=== PATIENT | male | born 1990 | race Caucasian/White ===

== ENCOUNTER 2019-07-28 15:32 | Outpatient (CLI) | payer OTHER, SELFPAY ==
--- NOTE | 2019-07-28 15:47 | XR_ITS ---
WS: [id number] CHEST 2 VIEWS HISTORY: REGULATED PROGRAM MONITORING COMPARISON: None available. Lungs: Clear with no abnormality. No pleural effusion or pneumothorax. Cardiac size: Normal. Mediastinum/Aorta: Normal mediastinum. Bones: Normal. NOTE: Report was unsigned for reason: Ordering provider was edited. Original Signature date and time was: 07/28/19 1557 MTD XR/XR chest 2V* [id number] IMPRESSION: Normal chest.
== END 2019-07-28 15:33 | disposition home or self-care (01) ==
PROVIDERS: Family Provider Nurse Practitioner Family; Visit Provider Preventive Medicine Occupational Medicine
DX: Z13.6 Encounter for screening for cardiovascular disorders (principal)
CPT/HCPCS: 71046

== ENCOUNTER → 2020-06-25 10:21 | Outpatient (BNVA) | payer OTHER, SELFPAY | PROVIDERS: Family Provider Nurse Practitioner Family; Visit Provider Nurse Practitioner Family | DX: Z20.828 Contact with and (suspected) exposure to other viral communicable diseases (principal) | CPT/HCPCS: 87635 ==

== ENCOUNTER 2020-10-31 13:53 | Outpatient (CLI) | payer OTHER, SELFPAY ==
--- NOTE | 2020-10-31 14:22 | XR_ITS ---
WS: [id number] CHEST 2 VIEWS HISTORY: REGULATED PROGRAM MONITORING COMPARISON: 07/28/2019. Lungs: Clear with no abnormality. No pleural effusion or pneumothorax. Cardiac size: Normal. Mediastinum/Aorta: Normal mediastinum. Bones: Normal. XR/XR chest 2V* [id number] IMPRESSION: Normal chest.
== END 2020-10-31 13:54 | disposition home or self-care (01) ==
PROVIDERS: Visit Provider Preventive Medicine Occupational Medicine
DX: Z13.6 Encounter for screening for cardiovascular disorders (principal)
CPT/HCPCS: 71046

== ENCOUNTER 2020-12-25 08:46 | Inpatient (IN) | payer OTHER, SELFPAY ==
[2020-12-25] VITALS (7 sets, daily range): BP systolic 115–174; BP diastolic 68–114; PULSE 56–93; RESP 16–20; TEMP 36–36.9; O2SAT 95–98; BMI 27.9
--- NOTE | 2020-12-25 09:06 | W.ED.PSYCH ---
Documented by User: TAMY Jj 12/25/20 10:09 HPI - Psych General: Chief Complaint: Psychiatric Symptoms Stated Complaint: drug abuse, harm to self, Time Seen by Provider: 12/25/20 08:48 Source: patient Mode of arrival: ambulatory Limitations: no limitations History of Present Illness: HPI Narrative: Patient is a polite 30-year-old male who presents to ED today with complaints of severe anxiety, depression with suicidal ideations, and concerns for chronic alcohol abuse. Patient tells me approximately a week ago his girlfriend of over 6 years decided she wanted to leave. He states they have a 3-year-old daughter together. They are currently residing in his home and he moved out to live with his parents. He states he is having significant stress and anxiety over the situation. He tells me yesterday he was in his truck at the [place] of a [place] road drinking and was thinking about killing himself. He tells me he does not feel like he would ever go through with this as he wants the help and wants to live for his little girl. Patient tells me he is struggled with chronic alcohol abuse for years. He started drinking when he was 19. He does not report any significant withdrawal symptoms when he is not drinking. Patient denies HI/hallucinations. No drug use. MD complaint: suicidal ideation, feels depressed and other (anxiety, etoh abuse) Onset (ago): day(s) Duration: constant History of same: No Relieving factors: none Exacerbating factors: alcohol and other (stress) Context: recent alcohol abuse and significant life stressor Associated psychiatric symptoms: depression and suicidal ideation Associated symptoms: Reports depression and suicidal ideation; Deny auditory hallucinations, visual hallucinations or homicidal ideation Treatments prior to arrival: none If self harm: admits thoughts of self harm Review of Systems Const: Denies: fever(s) or chills Card: Denies: chest pain, palpitations, lightheadedness or syncope Resp: Denies: dyspnea GI: Denies: abdominal pain, nausea, vomiting or diarrhea Musc: Denies: neck pain or back pain Skin/Breast: Denies: rash Neuro: Denies: headache(s) Psych: Reports: anxiety, depression, panic attacks and suicidal ideation; Denies: paranoia, visual hallucinations, auditory hallucinations or homicidal ideation Physical Exam Const: COMMON NORMALS: no acute distress, average body habitus, patient oriented x3, no limitations, healthy appearing, alert and well nourished GENERAL APPEARANCE: cooperative, well kempt and anxious Resp: COMMON NORMALS: normal respiratory effort and clear to auscultation bilaterally AUSCULTATION: clear to auscultation bilaterally Cardio: COMMON NORMALS: regular rate and regular rhythm RATE: regular rate RHYTHM: regular rhythm Neuro: COMMON NORMALS: patient oriented x3 SENSORIUM/ORIENTATION: Yes alert Psych: COMMON NORMALS: mental status grossly normal, Normal thought process present, cooperative, normal affect, speech normal, activity/motor behavior normal, denies hallucinations and denies homicidal ideation APPEARANCE: Yes grossly normal and Yes well kempt ATTITUDE: Yes calm and Yes Other attitude/behavior findings present (Psych) (anxious) ACTIVITY/MOTOR BEHAVIOR: Yes appropriate eye contact and No psychomotor agitation SPEECH: Yes normal speech MOOD & AFFECT: Yes euthymic mood THOUGHT PROCESS: Normal thought process present THOUGHT CONTENT: Yes Normal thought content present ATTENTION/CONCENTRATION: Yes attention grossly intact and Yes concentration grossly intact MEMORY/COGNITION: Yes memory grossly intact and Yes cognition grossly intact INSIGHT: Good insight present (Psych) JUDGEMENT: Good judgement present (Psych) Course ED course: Bassem will be placed on chart. He is voluntary and wanting to get help. Consultations: Consultation #1: Dr. Barber-accepts admission Vital Signs: Vital signs: Vital Signs Temperature 98.4 F 12/25/20 08:57 Pulse Rate 56 L 12/25/20 10:10 Respiratory Rate 18 12/25/20 10:10 Blood Pressure 115/68 12/25/20 10:10 Pulse Oximetry 95 12/25/20 10:10 MDM - Psych Lab Data: Labs: Lab Results 12/25/20 12/25/20 12/25/20 Range/Units 09:22 09:30 09:30 WBC 4.6 (4.0-10.0) 10^3/ uL RBC 5.14 (4.1-5.3) 10^6/u L Hgb 15.6 (11.7-16.6) g/dL Hct 44.3 (42.0-52.0) % MCV 86.2 (80-94) fL MCH 30.4 (28.0-34.0) pg MCHC 35.2 (30.0-36.0) g/dL RDW 12.2 (12.1-15.1) % Plt Count 266 (130-400) 10^3/c mm MPV 9.8 (7.4-10.4) fL Neut % (Auto) 61.3 % Lymph % (Auto) 28.5 % [place] % (Auto) 8.0 % Eos % (Auto) 1.1 % Baso % (Auto) 0.9 % Neut # (Auto) 2.84 (1.8-7.7) 10^3/u L Lymph # (Auto) 1.3 (0.8-4.8) 10^3/u L [place] # (Auto) 0.4 (0.2-0.9) 10^3/u L Eos # (Auto) 0.1 (0.0-0.8) 10^3/u L Baso # (Auto) 0.0 (0.0-0.1) 10^3/u L Nucleated RBC % (a uto) 0 % Nucleated RBCs # 0.0 /100WBC Sodium 136 (136-145) mmol/L Potassium 3.5 (3.5-5.1) mmol/L Chloride 98 (98-107) mmol/L Carbon Dioxide 26 (22-29) mmol/L Anion Gap 15.5 (5-19) BUN 8 (6-20) mg/dL Creatinine 0.7 (0.7-1.2) mg/dL GFR Calculation 134.3 H (90-130) mL/min Glucose 134 H (65-115) mg/dL Calculated Osmolal ity 282 L (285-295) mOsm/k g Calcium 9.3 (8.5-10.5) mg/dL Total Bilirubin 0.6 (0.15-1.2) mg/dL AST 27 (0-40) U/L ALT 24 (0-41) U/L Alkaline Phosphata se 94 (40-130) IU/L Total Protein 7.3 (6.6-8.7) g/dL Albumin 4.7 (3.5-5.2) g/dL Globulin 2.6 (1.3-4.6) g/dL Salicylates < 0.3 L (3-10) mg/dL Urine Opiates Scre en Negative (Negative) ng/mL Acetaminophen < 5.0 L (10-30) ug/mL Ur Barbiturates Sc reen Negative (Negative) ng/mL Ur Phencyclidine S crn Negative (Negative) ng/mL Ur Amphetamines Sc reen Negative (Negative) ng/mL U Benzodiazepines Scrn Negative (Negative) ng/mL Urine Cocaine Scre en Negative (Negative) ng/mL U Marijuana (THC) Screen Positive H (Negative) ng/mL Ethyl Alcohol < 10 (0-10) mg/dL Discharge Plan Discharge Patient Disposition: Admitted As Inpatient Clinical Impression: Suicidal ideation, Acute anxiety, Chronic alcohol abuse Condition: Stable Sign Out Sign Out Data: Patient Sign Out occurred on 12/25/20 at 10:10. Patient's care was discussed, and care was transferred from to Chico Bass DO. Coding Level of Care Code ED Chief Radiologic Technologist for Chg Fwd Exam Expanded Problem Focused Documented by User: Chico Bass DO 12/25/20 10:13 HPI - Psych General: Chief Complaint: Psychiatric Symptoms Stated Complaint: drug abuse, harm to self, Time Seen by Provider: 12/25/20 08:48 Course Vital Signs: Vital signs: Vital Signs Temperature 98.4 F 12/25/20 08:57 Pulse Rate 56 L 12/25/20 10:10 Respiratory Rate 18 12/25/20 10:10 Blood Pressure 115/68 12/25/20 10:10 Pulse Oximetry 95 12/25/20 10:10 MDM - Psych MDM Narrative: Medical decision making narrative: Case reviewed with TAMY Jj. Agree with assessment and plan orders written for admission Lab Data: Labs: Lab Results 12/25/20 12/25/20 12/25/20 Range/Units 09:22 09:30 09:30 WBC 4.6 (4.0-10.0) 10^3/ uL RBC 5.14 (4.1-5.3) 10^6/u L Hgb 15.6 (11.7-16.6) g/dL Hct 44.3 (42.0-52.0) % MCV 86.2 (80-94) fL MCH 30.4 (28.0-34.0) pg MCHC 35.2 (30.0-36.0) g/dL RDW 12.2 (12.1-15.1) % Plt Count 266 (130-400) 10^3/c mm MPV 9.8 (7.4-10.4) fL Neut % (Auto) 61.3 % Lymph % (Auto) 28.5 % Laporte % (Auto) 8.0 % Eos % (Auto) 1.1 % Baso % (Auto) 0.9 % Neut # (Auto) 2.84 (1.8-7.7) 10^3/u L Lymph # (Auto) 1.3 (0.8-4.8) 10^3/u L Laporte # (Auto) 0.4 (0.2-0.9) 10^3/u L Eos # (Auto) 0.1 (0.0-0.8) 10^3/u L Baso # (Auto) 0.0 (0.0-0.1) 10^3/u L Nucleated RBC % (a uto) 0 % Nucleated RBCs # 0.0 /100WBC Sodium 136 (136-145) mmol/L Potassium 3.5 (3.5-5.1) mmol/L Chloride 98 (98-107) mmol/L Carbon Dioxide 26 (22-29) mmol/L Anion Gap 15.5 (5-19) BUN 8 (6-20) mg/dL Creatinine 0.7 (0.7-1.2) mg/dL GFR Calculation 134.3 H (90-130) mL/min Glucose 134 H (65-115) mg/dL Calculated Osmolal ity 282 L (285-295) mOsm/k g Calcium 9.3 (8.5-10.5) mg/dL Total Bilirubin 0.6 (0.15-1.2) mg/dL AST 27 (0-40) U/L ALT 24 (0-41) U/L Alkaline Phosphata se 94 (40-130) IU/L Total Protein 7.3 (6.6-8.7) g/dL Albumin 4.7 (3.5-5.2) g/dL Globulin 2.6 (1.3-4.6) g/dL Salicylates < 0.3 L (3-10) mg/dL Urine Opiates Scre en Negative (Negative) ng/mL Acetaminophen < 5.0 L (10-30) ug/mL Ur Barbiturates Sc reen Negative (Negative) ng/mL Ur Phencyclidine S crn Negative (Negative) ng/mL Ur Amphetamines Sc reen Negative (Negative) ng/mL U Benzodiazepines Scrn Negative (Negative) ng/mL Urine Cocaine Scre en Negative (Negative) ng/mL U Marijuana (THC) Screen Positive H (Negative) ng/mL Ethyl Alcohol < 10 (0-10) mg/dL Discharge Plan Discharge Patient Disposition: Admitted As Inpatient Clinical Impression: Suicidal ideation, Acute anxiety, Chronic alcohol abuse Condition: Stable Sign Out Sign Out Data: Patient Sign Out occurred on 12/25/20 at 10:10. Patient's care was discussed, and care was transferred from to Chico Bass DO. Coding Level of Care Code ED Chief Radiologic Technologist for [place] Fwd Exam Expanded Problem Focused
--- NOTE | 2020-12-25 09:12 | PC.NURSE ---
Work nurse with pt and Sitter at doorway.
[2020-12-25] MEDS: LORazepam 1 mg Tablet PO (09:21)
[2020-12-25 09:37] LABS: Basophils % 0.9 %; Eosinophils # 0.1 10^3/uL (0.0-0.8); Eosinophils % 1.1 %; Hematocrit 44.3 % (42.0-52.0); Hemoglobin 15.6 g/dL (11.7-16.6); Lymphocytes # 1.3 10^3/uL (0.8-4.8); Lymphocytes % 28.5 %; Mean Corpuscular HGB Conc 35.2 g/dL (30.0-36.0); Mean Corpuscular Hemoglobin 30.4 pg (28.0-34.0); Mean Corpuscular Volume 86.2 fL (80-94); Mean Platelet Volume 9.8 fL (7.4-10.4); Monocytes # 0.4 10^3/uL (0.2-0.9); Neutrophils # 2.84 10^3/uL (1.8-7.7); Neutrophils % 61.3 %; Nucleated Red Blood Cells % 0 %; Platelet Count 266 10^3/cmm (130-400); Red Blood Count 5.14 10^6/uL (4.1-5.3); Red Cell Distribution Width 12.2 % (12.1-15.1); White Blood Count 4.6 10^3/uL (4.0-10.0)
[2020-12-25 09:55] LABS: Alanine Aminotransferase 24 U/L (0-41); Albumin Level 4.7 g/dL (3.5-5.2); Alkaline Phosphatase 94 IU/L (40-130); Anion Gap 15.5 (5-19); Aspartate Amino Transferase 27 U/L (0-40); Blood Urea Nitrogen 8 mg/dL (6-20); Calcium 9.3 mg/dL (8.5-10.5); Carbon Dioxide 26 mmol/L (22-29); Chloride 98 mmol/L (98-107); Globulin 2.6 g/dL (1.3-4.6); Glomerular Filtration Rate 134.3 mL/min (90-130); Glucose 134 mg/dL (65-115); Osmolality Calculated 282 mOsm/kg (285-295); Potassium 3.5 mmol/L (3.5-5.1); Sodium 136 mmol/L (136-145); Total Bilirubin 0.6 mg/dL (0.15-1.2); Total Protein 7.3 g/dL (6.6-8.7)
[2020-12-25 09:56] LABS: Acetaminophen < 5.0 ug/mL (10-30); Alcohol Level < 10 mg/dL (0-10); Salicylate < 0.3 mg/dL (3-10)
[2020-12-25 10:11] LABS: Amphetamines Screen Urine Negative (Negative); Barbiturates Screen Urine Negative (Negative); Benzodiazepines Screen Urine Negative (Negative); Cocaine Screen Urine Negative (Negative); Opiate Screen Urine Negative (Negative); PCP Screen Urine Negative (Negative); THC Screen Urine Positive (Negative)
--- NOTE | 2020-12-25 14:59 | PC.NURSE ---
contact info, mother Cinthya [phone]
--- NOTE | 2020-12-25 15:56 | PM.SDS ---
Short Stay Summary Providers Date of Admit/Discharge: 12/26/20 Attending Provider: Damian Barber MD Chief Complaint: drug abuse, harm to self, HPI History of Present Illness Jovanni Lancaster is a 30 year old male who presented to the emergency department with the following report: Chief Complaint: Psychiatric Symptoms Stated Complaint: drug abuse, harm to self, Time Seen by Provider: 12/25/20 08:48 Source: patient Mode of arrival: ambulatory Limitations: no limitations History of Present Illness: HPI Narrative: Patient is a polite 30-year-old male who presents to ED today with complaints of severe anxiety, depression with suicidal ideations, and concerns for chronic alcohol abuse. Patient tells me approximately a week ago his girlfriend of over 6 years decided she wanted to leave. He states they have a 3-year-old daughter together. They are currently residing in his home and he moved out to live with his parents. He states he is having significant stress and anxiety over the situation. He tells me yesterday he was in his truck at the end of a dirt road drinking and was thinking about killing himself. He tells me he does not feel like he would ever go through with this as he wants the help and wants to live for his little girl. Patient tells me he is struggled with chronic alcohol abuse for years. He started drinking when he was 19. He does not report any significant withdrawal symptoms when he is not drinking. Patient denies HI/hallucinations. No drug use. complaint: suicidal ideation, feels depressed and other (anxiety, etoh abuse) Onset (ago): day(s) Duration: constant History of same: No Relieving factors: none Exacerbating factors: alcohol and other (stress) Context: recent alcohol abuse and significant life stressor Associated psychiatric symptoms: depression and suicidal ideation Associated symptoms: Reports depression and suicidal ideation; Deny auditory hallucinations, visual hallucinations or homicidal ideation Treatments prior to arrival: none If self harm: admits thoughts of self harm. He was admitted to the neuropsychiatric unit for definitive treatment of those issues. On the unit he expressed significant concern surrounding being admitted to the unit. He felt at some level he was misled stating that he had only hope that he would have the opportunity to talk to someone and that he was not aware that he was not essentially coming down for an appointment talking to a provider and then going home as he was a voluntary patient. He was requesting to leave and given concerns that were raised about lethality he agreed to talk about the situation more. He identified that he had not had previous psychiatric treatment before and that the nidus of his current presentation is that he is in the midst of a divorce to a woman that he is not to but that he has seen as his and with whom he has a 3-year-old daughter. He reports that the whole situation of ending their relationship has come as a shock to him and he has not been doing well coping with it. He acknowledges that he has essentially turned to drinking as his main coping mechanism and that while drinking heavily he made some stupid statements. He acknowledges in his interview in the emergency department as well as his conversation with significant individuals in his life having had thoughts of dying or killing himself. He denies that he would ever do this he denies that it was anything more than thoughts and reports that it was that that prompted him to attempt to get connected to help. What help meant to him was likely getting someone to talk to and getting some assistance in coping with his very challenging situation. He reports he has lots of responsibilities and he does not feel that sitting in an inpatient setting is necessary because he does not need to be kept safe, he would like to return to work in make sure he can continue to make payments on his financial responsibilities and he is currently not leaning towards considering medication just getting assistance in discontinuing his alcohol use at least to the level where he is and assistance with coping with this change. He endorses chewing tobacco and occasionally having a cigarette, drinking alcohol too much but denies marijuana or any other illicit drug use denies ever being in a rehab or having a DUI. We reviewed his psychosocial history and he denies any contributory concerns though he does have a brother that really struggled in a similar situation with a divorce. He denies developmental issues, legal issues or any history of trauma. Mental status examination: This is a well-nourished, well-developed white male with adequate dress, grooming and eye contact. No abnormal movements. Cooperative with exam in no acute distress. Speech was normal rate and volume. Mood described as stressed but okay, affect congruent. Thought process organized. Thought content: Patient denied suicidal or homicidal ideation, there were no delusions reported or noted, he denied any auditory or visual hallucinations. Attention and concentration were intact and memory appeared reliable but none were formally tested. He is alert and oriented x3. Insight and judgment appeared fair and impulse control. Fair. Assessment/plan: This is a 30-year-old white male with no significant mental health history but recent psychosocial challenges with the dissolution of his most significant romantic relationship in his life which has led to increased drinking behavior and a recent moment where he contemplated suicide who presents not wanting inpatient services but only referral to outpatient and drug and alcohol follow-up. 1. Continue current medication. Including 100 mg of thiamine daily. 2. Encourage individual, group and milieu therapy while in the hospital. 3. The every 15 minute checks for safety while inpatient. 4. Encourage sober living treatment after discharge at the highest level of care to which he is willing to commit. Home Meds/Allergies Home Medications and Allergies Allergies Allergy/AdvReac Type Severity Reaction Status Date / Time Penicillins Allergy Unknown unknown Verified 12/25/20 08:55 Vitals/I&O/Wt Last Vital Signs Temp 96.8 F L 12/25/20 14:00 Pulse 93 12/25/20 14:00 Resp 20 H 12/25/20 14:00 BP 146/88 12/25/20 14:00 Pulse Ox 98 12/25/20 14:00 Weight last 48 hrs Weight 88.451 kg Hospital Course Admission Diagnoses Adjustment disorder with mixed disturbance of emotion and conduct, alcohol use, partner relational problem, and anxiety. Hospital Course After evaluation in the emergency department patient was admitted to the neuropsychiatric unit for definitive treatment of those issues. On the unit he quickly acclimated to the individual, group and milieu therapies provided. However as a voluntary patient he determined that the inpatient setting was not what he thought it might be and that he truly wanted outpatient services. He was able to contract for safety and was not interested in pharmacologic interventions. During the hospitalization he had routine laboratory studies which were within normal limits except for few outliers. Additionally had a general medical evaluation which was also within normal limits and revealed no new acute processes. Discharge Summary At the time of discharge, he denied psychosis or lethality. His mood and anxiety were well managed. He endorsed a plan to avoid all drugs of abuse and to follow-up with outpatient resources referrals as provided by the treatment team. He was evaluated and deemed to be absent credible lethality, and was a voluntary patient no longer desiring inpatient services, so he was allowed to discharge. Diagnoses at Discharge Discharge Diagnosis (1) Acute anxiety: Status: Acute (2) Chronic alcohol abuse: Status: Acute (3) Partner relational problem: Status: Acute (4) Adjustment disorder with mixed disturbance of emotions and conduct: Status: Acute Discharge Plan Discharge Patient Disposition: Home Condition: Stable Prescriptions: New Vitamin B-1 (mononitrate) 100 mg Tablet 100 mg PO DAILY 30 Days Qty: 30 RF: 1 Discharge Orders: Discharge Order (Routine); Ordered 12/25/20 Ordered By: Damian Barber Referrals: [facility] [Outside] (Please walk in to complete your initial assessment, anytime Thursday-Thursday from 8:00-3:00.) [facility] [Outside] Discharge Diet: Regular Discharge Activity: Resume usual activity Patient Instructions: Opioid Safety Attestations Medical Necessity Statement*: Inpatient hospitalization is no longer medically necessary or the clinically appropriate intervention at this time. Patient was a voluntary patient and was able to contract for safety without any signs or concerns for lethality so he was allowed to discharge. Time Spent in Patient Care*: greater than 30 min Specific Discharge Activities: Specific discharge activities: educating patient, discussing with case management director/social workers/dc planners, documenting/other paperwork and evaluating patient/reviewing data Quality Metrics Clinical Quality Measures: During this hospital stay, did patient experience: None Coding Level of Care Code Acute Tieing Machine Operator for Laney Veliz Diagnoses Acute anxiety F41.9 Chronic alcohol abuse F10.10 Partner relational problem Z63.0 Adjustment disorder with mixed disturbance of emotions and conduct F43.25
== END 2020-12-25 16:14 | disposition home or self-care (01) | DRG 882 ==
LOC: ER 10:10 → NP 10:39
PROVIDERS: Physician Assistant; Admitting Provider Psychiatry & Neurology Psychiatry; Emergency Provider Family Medicine; Visit Provider Psychiatry & Neurology Psychiatry
DX: F43.25 Adjustment disorder with mixed disturbance of emotions and conduct (principal); R45.851 Suicidal ideations; F32.9 Major depressive disorder, single episode, unspecified; F41.9 Anxiety disorder, unspecified; F10.10 Alcohol abuse, uncomplicated; Z63.0 Problems in relationship with spouse or partner
CPT/HCPCS: 80053; 80306; 80307; 85025; 99285

== ENCOUNTER 2022-06-16 11:45 | Outpatient (CLI) | payer OTHER, SELFPAY ==
--- NOTE | 2022-06-16 | XR_ITS ---
WS: [id number] Exam: XR chest 2V* [id number] Date/Time of Exam: 06/16/2022 12:06 PM Reason For Exam: REGULATED PROGRAM MONITORING Comparison 10/31/2020. Findings: The lungs are clear and fully expanded. Costophrenic angles are sharp. No infiltrates. Bronchovascula r relief appears normal. Cardiac silhouette is unremarkable. Bony elements are intact. XR/XR chest 2V* [id number] IMPRESSION: Unremarkable chest radiograph.
== END 2022-06-16 11:46 | disposition home or self-care (01) ==
LOC: RAD 11:53
PROVIDERS: PCP Nurse Practitioner Family; Visit Provider Preventive Medicine Occupational Medicine
DX: Z13.6 Encounter for screening for cardiovascular disorders (principal)
CPT/HCPCS: 71046